=== PATIENT | female | born 1975 | race Caucasian/White ===

== ENCOUNTER 2022-01-20 21:24 | Emergency (ER) | payer OTHER, SELFPAY ==
[2022-01-20] VITALS (7 sets, daily range): BP systolic 112–150; BP diastolic 58–81; PULSE 87–105; RESP 18–24; TEMP 36.7; O2SAT 97–100; BMI 31.7
--- NOTE | 2022-01-20 21:37 | RAD_ITS ---
INDICATION: chest pain EXAMINATION/TECHNIQUE: X-RAY - XR Chest 1 View COMPARISON: 11/03/2015 FINDINGS: LINES/DEVICES: None. LUNGS: No consolidation, edema or effusion. No pneumothorax. MEDIASTINUM AND CARDIOVASCULAR STRUCTURES: Cardiac silhouette not enlarged. Central airways and mediastinal contour are unremarkable. BONES AND SOFT TISSUES: Unremarkable. RAD/Chest 1 View (Portable) IMPRESSION: No acute cardiopulmonary disease. Electronically Signed: Helder Keane MD at 22:33 EDT ,
--- NOTE | 2022-01-20 21:40 | EKG12_ITS ---
Test Reason : CP Blood Pressure : / mmHG Vent. Rate : 091 BPM Atrial Rate : 091 BPM P-R Int : 140 ms QRS Dur : 092 ms QT Int : 372 ms P-R-T Axes : 047 057 040 degrees QTc Int : 457 ms Normal sinus rhythm Normal ECG Confirmed by AMY MCKEON, YAHAIRA ([id number]), make up editor APRIL MADRID ([id number]) on 01/24/2022 9:22:46 AM Referred By: BB Confirmed By:YAHAIRA REYES MD
[2022-01-20 21:50] LABS: Absolute Lymphocyte Count 2.76 X10^3/uL (0.83-4.51); Absolute Neutrophil Count 8.9 X10^3/uL (2.0-7.7); Basophil# 0.09 X10^3/uL; Basophil% 0.7 % (0-1); Eosinophil# 0.34 X10^3/uL; Eosinophils% 2.5 % (0-5); Hematocrit 40.4 % (37-47); Hemoglobin 13.8 g/dL (12.0-15.0); Lymphocyte # 2.76 X10^3/ul (0.83-4.51); Lymphocyte % 20.7 % (19-41); Mean Corp Hgb Conc 34.2 g/dL (32-36); Mean Corpuscular Hgb 31.8 pg (27.0-32.0); Mean Corpuscular Volume 93.1 fL (81-99); Mean Platelet Vol. 9.9 fl (6.2-12.0); Monocyte# 1.16 X10^3/uL; Monocyte% 8.7 % (0-10); NRBC Flagged by Analyzer 0 % (0-5); Neutrophil # 8.93 X10^3/uL (2.7-7.7); Platelet Count 295 K/mm3 (150-450); RBC Distribution Width CV 12.9 % (11.6-14.6); RBC Distribution Width SD 44.1 fl (35.1-43.9); Red Blood Count 4.34 M/mm3 (4.2-5.4); White Blood Count 13.3 K/mm3 (4.4-11.0)
[2022-01-20 22:09] LABS: Anion Gap 5 (5-15); BUN 13 mg/dL (7-18); BUN/Creat Ratio 18.4 RATIO (10-20); Calcium,Total 8.9 mg/dL (8.5-10.1); Chloride 110 mmol/L (98-107); Creatinine, Serum 0.71 mg/dL (0.55-1.02); EST Glomerular Filtration Rate 95 mL/min (>60); Est Glom Filt Rate - Afr Amer 115 mL/min (>60); Estimated Creatinine Clearance 87.31 ml/min; Glucose 112 mg/dL (74-106); Potassium 3.4 mmol/L (3.5-5.1); Sodium Level 141 mmol/L (136-145); Troponin-I HS < 3 pg/mL (3.0-54.0)
[2022-01-20] MEDS: Ipratropium/Albuterol Sulfate 3 ML AMPUL.NEB INHALATION (22:32)
[2022-01-20] MEDS: diazePAM 5 MG Tablet PO (22:36)
[2022-01-20 23:08] LABS: Magnesium 2.1 mg/dL (1.6-2.6)
[2022-01-20 23:12] LABS: D-Dimer Quantitative (DVT/PE) 0.44 FEU/ug/m (0.27-0.49)
[2022-01-20 23:15] LABS: BNP,B-Type NATRIURETIC PEPTIDE 2.2 pg/mL (0-100)
--- NOTE | 2022-01-20 23:25 | EDS_ITS ---
HPI History of Present Illness Chief Complaint: Chest Pain Narrative Narrative: Patient is a 46-year-old female with past medical history of smoking but denies any need for supplemental oxygen. Patient states this afternoon she began feeling shortness of breath and was breathing faster and had mild chest discomfort a few hours later. She denies any previous history of cardiovascular disease any fevers chills cough or congestion. 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 She states that her symptoms have been persistent she was concerned this could be cardiac in nature especially as she is now developed chest pain and therefore comes in for evaluation. PFSH PFS Medical History Anxiety Depression Pulmonary embolism Smoker Home Medications albuterol sulfate 90 mcg/actuation aerosol inhaler (Ventolin HFA) 1 - 2 puff inhalation Q4H PRN PRN SOB/Wheezing #1 device 01/20/22 [Rx Last Taken Unknown] mirtazapine 15 mg tablet 15 tab PO DAILY 01/20/22 [History Last Taken Unknown] sertraline 100 mg tablet 100 tab PO DAILY 01/20/22 [History Last Taken Unknown] Allergy/AdvReac Type Severity Reaction Status Date / Time No Known Allergies Allergy Verified 01/20/22 21:27 Social History (System 04/25/18 @ 13:32 by Ofe Eng) Smoking Status: Current every day smoker tobacco type: cigarettes ROS ROS ED Constitutional Constitutional ED: Denies chills or fever(s) ENT ENT ED: Denies sore throat Cardiovascular Cardiovascular: Reports chest pain; Denies palpitations Respiratory/Chest Respiratory/Chest: Reports dyspnea; Denies cough Gastrointestinal Gastrointestinal: Denies abdominal pain, diarrhea, nausea or vomiting Genitourinary Genitourinary ED: Denies dysuria Musculoskeletal Musculoskeletal: Denies myalgias Integumentary Denies rash Neurologic Neurologic: Denies headache(s) Hematologic/Lymphatic Hematologic/Lymphatic: Denies easy bleeding or easy bruising EXAM Physical Exam Const Vital Signs: 01/20/22 21:24 01/20/22 21:57 01/20/22 21:57 Temperature 98.1 F Temperature Source Temporal Pulse Rate 105 H 91 Respiratory Rate 22 H 24 H Respiratory Effort Respiratory Depth Respiratory Pattern Blood Pressure 150/81 H 120/76 Blood Pressure Mean 104 90 Pulse Ox 97 100 100 Oxygen Delivery Method Room Air Room Air Room Air 01/20/22 21:59 01/20/22 22:31 01/20/22 23:22 Temperature Temperature Source Pulse Rate 87 87 Respiratory Rate 18 18 Respiratory Effort Labored Respiratory Depth Deep Respiratory Pattern Tachypnea Blood Pressure 116/58 L 128/73 H Blood Pressure Mean 77 91 Pulse Ox 100 98 Oxygen Delivery Method Room Air Room Air Room Air Positive well nourished and well developed General Appearance ED: well developed HEENT Reports moist mucous membranes HEENT Narrative: No tongue or lip swelling no oral lesions no airway edema or compromise Eyes PERRL and EOMs intact bilaterally Neck supple and no JVD Resp Resp Narrative: Patient has diminished breath sounds throughout with faint expiratory wheeze consistent with history of smoking as well as mild tachypnea and accessory muscle use Cardio regular rate and regular rhythm Rate: other Other Details: Radial pulses are plus 2 out of 4 bilaterally are equal and symmetric GI non-tender and non-distended Auscultation: normoactive bowel sounds Palpation: soft Extremity normal to inspection Extremity Narrative: No asymmetric edema no pitting edema negative Homans' sign bilaterally Neuro oriented x3 and CN's II-XII intact bilaterally Sensorium / Orientation: alert Psych Psych Narrative: Patient has a nervous/anxious affect Skin no rashes or lesions noted MDM MDM MDM Narrative Medical decision making narrative: Patient presented to the ER with mild tachypnea and accessory muscle use. She reported feeling short of breath and did have mild increased work of breathing but despite this was satting 97 to 100% on room air. She has minimal risk factors for CAD but with her history a cardiac work-up was obtained as well as D-dimer because of previous DVT/PE. Blood work revealed no clinically signifi cant findings and as her symptoms have been going on for over 6 hours and initial troponin was less than 3 there is no need for delta. Patient was given breathing treatments and did have improvement of her symptoms as well as reduction in her work of breathing. Therefore at this time with normal troponin and negative D-dimer as well as no acute cardio or pulmonary disease on chest x- ray and improvement of symptoms there is no need for further work-up or admission. Patient be discharged home with symptomatic care. Lab Data Attestation: I reviewed the patient's lab results. Labs: Laboratory Results - last 24 hr 01/20/22 01/20/22 01/20/22 21:40 21:40 21:40 WBC 13.3 H RBC 4.34 Hgb 13.8 Hct 40.4 MCV 93.1 MCH 31.8 MCHC 34.2 RDW Std Deviation 44.1 H RDW Coeff of Torres 12.9 Plt Count 295 MPV 9.9 Immature Gran % (Auto) 0.400 Neut % (Auto) 67.0 Lymph % (Auto) 20.7 [place] % (Auto) 8.7 Eos % (Auto) 2.5 Baso % (Auto) 0.7 Absolute Neuts (auto) 8.9 H Absolute Lymphs (auto) 2.76 Nucleated RBC % 0 D-Dimer Quant (PE/DVT) 0.44 Sodium 141 Potassium 3.4 L Chloride 110 H Carbon Dioxide 26.0 Anion Gap 5 BUN 13 Creatinine 0.71 Estim Creat Clear Calc 87.31 Est GFR (MDRD) Af Amer 115 Est GFR (MDRD) Non-Af 95 BUN/Creatinine Ratio 18.4 Glucose 112 H Calcium 8.9 Magnesium Troponin I High Sens < 3 L B-Natriuretic Peptide 01/20/22 01/20/22 21:40 21:40 WBC RBC Hgb Hct MCV MCH MCHC RDW Std Deviation RDW Coeff of Torres Plt Count MPV Immature Gran % (Auto) Neut % (Auto) Lymph % (Auto) [place] % (Auto) Eos % (Auto) Baso % (Auto) Absolute Neuts (auto) Absolute Lymphs (auto) Nucleated RBC % D-Dimer Quant (PE/DVT) Sodium Potassium Chloride Carbon Dioxide Anion Gap BUN Creatinine Estim Creat Clear Calc Est GFR (MDRD) Af Amer Est GFR (MDRD) Non-Af BUN/Creatinine Ratio Glucose Calcium Magnesium 2.1 Troponin I High Sens B-Natriuretic Peptide 2.2 Radiography Diagnostic Testing: Clinical Impression(s) from Imaging Studies Chest X-Ray 01/20/22 21:37 IMPRESSION: No acute cardiopulmonary disease. Electronically Signed: Helder Keane MD at 22:33 EDT , Chest x-ray as interpreted by the emergency medicine physician reveals no acute infiltrate pneumothorax or pleural effusion. Discharge Plan Triage Chief Complaint: Chest Pain Other Complaint: Shortness of Breath ED Provider: Neeraj Urbano Dx/Rx/DC Orders Instructions: ED Chest Pain, Uncertain Cause Prescriptions: New albuterol sulfate [Ventolin HFA] 90 mcg/actuation HFA aerosol inhaler 1 - 2 puff inhalation Q4H PRN PRN (Reason: SOB/Wheezing) Qty: 1 0RF No Action sertraline 100 mg tablet 100 tab PO DAILY mirtazapine 15 mg tablet 15 tab PO DAILY Label Comments: TAKE 1 TABLET BY MOUTH ONCE DAILY Primary Care Provider: Khurram Velazquez NP Referrals: Khurram Velazquez NP, ADMISSION DISCHARGE RN-C [Primary Care Provider] - Disposition Disposition: Home, Self Care Discharge Date/Time: 01/20/22 23:34
== END 2022-01-20 23:34 | disposition home or self-care (01) ==
PROVIDERS: Emergency Provider Emergency Medicine; PCP Nurse Practitioner Family; Visit Provider Emergency Medicine
DX: R07.9 Chest pain, unspecified (principal); R06.02 Shortness of breath; F17.210 Nicotine dependence, cigarettes, uncomplicated; Z86.711 Personal history of pulmonary embolism
CPT/HCPCS: 71045; 80048; 83735; 83880; 84484; 85025; 85379; 93005; 94640; 99251; 99284; G0463

== ENCOUNTER 2022-01-25 08:41 | Inpatient (IN) | payer OTHER, SELFPAY ==
[2022-01-25] VITALS (16 sets, daily range): BP systolic 103–130; BP diastolic 44–106; PULSE 92–117; RESP 18–26; TEMP 37–38.8; O2SAT 95–98; BMI 32.5; BMI 35.6
--- NOTE | 2022-01-25 08:56 | EKG12_ITS ---
Test Reason : SOB Blood Pressure : / mmHG Vent. Rate : 102 BPM Atrial Rate : 102 BPM P-R Int : 126 ms QRS Dur : 098 ms QT Int : 346 ms P-R-T Axes : 044 062 021 degrees QTc Int : 450 ms Sinus tachycardia Otherwise normal ECG Confirmed by DARLENE MCKEON, RIAZ ([id number]), editor managing newspaper APRIL MADRID ([id number]) on 01/30/2022 11:06:05 AM Referred By: Collin Confirmed By:GABINO COLON MD
--- NOTE | 2022-01-25 08:56 | RAD_ITS ---
STUDY: X-RAY CHEST REASON FOR EXAM: Female, 46 years old. Cough, fever, rales right lower lobe, - COVID PCR TECHNIQUE: Single AP portable view of the chest. COMPARISON: Comparison is made with prior study dated 01/20/2022. FINDINGS: EKG electrodes are seen. Right infrahilar consolidation. Radiographic follow-up recommended. There is no demonstrated pleural abnormality. Normal size heart. Normal mediastinum and debra. Normal visualized pulmonary arteries. Normal visualized aortic arch and descending thoracic aorta. Normal visualized thoracic spine. Normal visualized ribs, clavicles, and shoulders. There is no demonstrated abnormality of the visualized soft tissue structures of the upper abdomen. RAD/Chest 1 View (Portable) IMPRESSION: Right infrahilar consolidation. Electronically Signed: Esvin Duran MD at 11:08 EDT ,
--- NOTE | 2022-01-25 09:00 | ED.VIS.DYS ---
HPI History of Present Illness Chief Complaint: Shortness of Breath Informant: patient and spouse/S.O. Onset/Context/Timing Onset: Days Context: sudden and gradual Timing: Continuous Quality: Positive for Dyspnea on exertion and Wheezing; Negative for Orthopnea or PND Current Severity: Mild Maximum Severity: Severe Worsened by: Exertion Relieved by: Nothing Associated Symptoms cough, fever, chills and other; Negative for rhinorrhea, post nasal drip, ear pain, sore throat, subjective, sweats, clear sputum, white sputum, yellow sputum or green sputum Chest Pain: Positive for Intermittent, Sharp and Pleuritic Narrative Narrative: Patient is a 46-year-old woman who was seen at the [facility] yesterday. Had a negative COVID PCR. D-dimer was elevated at 1700. She has a remote history of PE that was unprovoked when she was 22 years of age. She did have recent trip to [place] 6 weeks ago. states she had swelling the day after the trip. The swelling resolved in 24 hours. She denies leg pain, swelling or discoloration presently. She does report document temperature 103.4. She reports epistaxis with vomiting. She is not on an anticoagulant. She has vomited several times the past hour or 2. She does endorse thirst, dry mouth and lightheadedness. She does report mild headache. She denies double vision, blurred vision loss of vision. Denies ringing in ears or decreased hearing. She denies rhinorrhea, congestion postnasal drainage. She denies sore throat. She denies abdominal pain. She denies diarrhea. She does endorse stress incontinence. She denies dysuria, frequency, urgency or hematuria. She denies paresthesia, anesthesia or motor weakness. PE Risk Factors: Positive for Prior DVT or PE; Negative for Cancer, OCP + Smoking + > 35, Recent immobilization, Recent surgery or Recent travel Prior similar symptoms: No Recent Illness/Hospitalization: No PFSH PFSH Medical History Alcohol abuse Anxiety Depression Pulmonary embolism Smoker Home Medications albuterol sulfate 90 mcg/actuation aerosol inhaler (Ventolin HFA) 1 - 2 puff inhalation Q4H PRN PRN SOB/Wheezing #1 device 01/20/22 [Rx Last Taken Unknown] mirtazapine 15 mg tablet 15 mg PO DINNER 01/20/22 [History Last Taken 01/24/22] sertraline 100 mg tablet 100 mg PO DINNER 01/20/22 [History Last Taken 01/24/22] Allergy/AdvReac Type Severity Reaction Status Date / Time No Known Allergies Allergy Verified 01/25/22 08:43 Surgical History History of hysterectomy Social History household members: spouse Smoking Status: Current every day smoker tobacco type: cigarettes alcohol intake: current substance use type: does not use ROS ROS ED Constitutional Constitutional ED: Reports chills, fever(s) and sweats; Denies weight loss Eyes Eyes: Denies blurry vision, change in vision or diplopia ENT ENT ED: Reports other Details: Epistaxis with vomiting ; Denies ear pain, rhinorrhea or sore throat Cardiovascular Cardiovascular: Reports chest pain; Denies orthopnea, palpitations, paroxysmal nocturnal dyspnea or racing heartbeat Respiratory/Chest Respiratory/Chest: Reports cough, dyspnea and dyspnea on exertion; Denies orthopnea, paroxysmal nocturnal dyspnea or sputum Gastrointestinal Gastrointestinal: Reports abdominal pain, nausea, vomiting and other Details: Abdominal pain is associated with vomiting ; Denies constipation, diarrhea or melena Genitourinary Genitourinary ED: Denies dysuria, hematuria or urinary frequency Musculoskeletal Musculoskeletal: Denies arthralgias, back pain, myalgias or neck pain Integumentary Denies abscess, Abrasions or rash Neurologic Neurologic: Reports headache(s); Denies paresthesias or weakness Endocrine Endocrinology: Denies cold intolerance, heat intolerance, polydipsia, polyphagia or polyuria Hematologic/Lymphatic Hematologic/Lymphatic: Denies easy bleeding or easy bruising EXAM Physical Exam Const Vital Signs: 01/25/22 08:41 01/25/22 08:58 01/25/22 09:01 Temperature 100.9 F H Temperature Source Temporal Pulse Rate 117 H Respiratory Rate 20 H Respiratory Effort Labored Pursed Lip Respiratory Depth Shallow Respiratory Pattern Tachypnea Blood Pressure 130/75 H Blood Pressure Mean 93 Pulse Ox 96 95 Oxygen Delivery Method Room Air Room Air Room Air 01/25/22 09:03 01/25/22 09:29 01/25/22 09:39 Temperature 100.9 F H 100.9 F H Temperature Source Oral Oral Pulse Rate 106 H 104 H Respiratory Rate 18 21 H Respiratory Effort Respiratory Depth Respiratory Pattern Blood Pressure 110/77 125/73 H Blood Pressure Mean 88 90 Pulse Ox 95 96 Oxygen Delivery Method Room Air Room Air 01/25/22 10:00 01/25/22 10:00 01/25/22 10:39 Temperature 99.3 F H 99.3 F H 98.6 F Temperature Source Oral Oral Oral Pulse Rate 108 H 100 Respiratory Rate 24 H 22 H Respiratory Effort Respiratory Depth Respiratory Pattern Blood Pressure 122/106 H 111/67 Blood Pressure Mean 111 81 Pulse Ox 96 95 Oxygen Delivery Method Room Air Room Air Positive well nourished, well developed and obese Constitutional Narrative: Patient does not appear well. She is breathing much more rapidly than 20 times a minute. She appears ill but not toxic. There is minimal use of accessory muscles. General Appearance ED: well developed; Negative for NAD or pallor Nutritional Appearance: obese HEENT Reports dry mucous membranes HEENT Narrative: Ears normal. TMs normal. Nares patent. Posterior pharynx out erythema or exudate. Uvula is midline. atraumatic; Negative for tenderness Mouth ED: Yes dry mucous membranes Mouth: dry mucous membranes Eyes PERRL and EOMs intact bilaterally General Eye ED: Negative for pale conjunctiva or scleral icterus Neck no lymphadenopathy, supple, no meningeal signs and no JVD Neck Narrative: Trachea is midline. There is no in-store expiratory stridor. Resp No normal respiratory effort and No clear to auscultation bilaterally Resp Narrative: There are rales noted right lower lobe posteriorly with egophony and increased vocal fremitus. There is slight wheezing noted with forced expiration, only. Cardio regular rhythm, S1 normal heart sound, S2 normal heart sound and no murmurs Rate: tachycardic GI non-tender, non-distended and no masses Auscultation: hypoactive bowel sounds Palpation: soft Back/Spine no CVA tenderness and normal to inspection Extremity normal to inspection Extremity Narrative: There is no asymmetry, swelling, discoloration, leg vein distention, palpable cords or tenderness along the distribution of the deep venous system. Neuro oriented x3, CN's II-XII intact bilaterally and no sensory deficits noted [place] Coma Scale: document GCS findings Spontaneous Obeys Commands Oriented 15 Sensorium / Orientation: alert Speech: speech normal Motor Exam: strength 5/5 throughout Psych mental status grossly normal Skin no wounds and skin turgor normal General Skin Exam: Negative for jaundice or pallor Lesions: no lesions Rashes: no rashes MDM MDM MDM Narrative Medical decision making narrative: Clinically patient has a right lower lobe pneumonia. If there is no evidence of pneumonia on x-ray will obtain CTA since patient's D-dimer was 1711 yesterday. This was performed at the [facility]. The right lower lobe pneumonia would explain her nausea and vomiting. BMP was obtained to assess renal function, CO2 and anion gap. CBC to evaluate white count as well as rule out anemia. Sepsis work-up was initiated. She was treated with ceftriaxone and azithromycin since she has no allergies. Patient received IV Zofran for her nausea and significant milligrams of Tylenol for elevated temperature. Patient was reassessed at 1000. Patient is breathing 33 times a minute. She has conversational dyspnea. Heart rate is 103. With patient having conversational dyspnea breathing 33 times a minute she will need admission to the hospital. Lab Data Attestation: I reviewed the patient's lab results. Lab results narrative: White count is elevated with shift. There is no bandemia. I was informed at 0939 that the potassium is 2.7. 40 mEq of potassium solution was ordered. Electrolytes otherwise are unremarkable. CO2 and anion gap are normal. Glucose is slightly elevated 124. Lactate is normal, 1.4. Labs: Laboratory Results - last 24 hr 01/25/22 01/25/22 01/25/22 09:09 09:09 09:09 WBC 16.4 H RBC 4.12 L Hgb 13.1 Hct 36.3 L MCV 88.1 D MCH 31.8 MCHC 36.1 H D RDW Std Deviation 40.8 RDW Coeff of Torres 12.6 Plt Count 276 MPV 10.1 Immature Gran % (Auto) 3.200 H Neut % (Auto) 84.5 H Lymph % (Auto) 6.1 L [place] % (Auto) 5.4 Eos % (Auto) 0.3 Baso % (Auto) 0.5 Absolute Neuts (auto) 13.8 H Absolute Lymphs (auto) 0.99 Nucleated RBC % 0 PT 15.1 H INR 1.2 APTT 35.3 Sodium 133 L Potassium 2.7 L* Chloride 101 Carbon Dioxide 22.0 Anion Gap 10 BUN 12 Creatinine 0.84 Estim Creat Clear Calc 73.80 Est GFR (MDRD) Af Amer 95 Est GFR (MDRD) Non-Af 79 BUN/Creatinine Ratio 14.4 Glucose 124 H Lactic Acid Calcium 8.6 Magnesium Total Bilirubin 0.60 AST 28 ALT 31 Alkaline Phosphatase 71 Total Protein 7.7 Albumin 2.8 L Globulin 4.9 H Albumin/Globulin Ratio 0.6 L 01/25/22 01/25/22 09:09 09:09 WBC RBC Hgb Hct MCV MCH MCHC RDW Std Deviation RDW Coeff of Torres Plt Count MPV Immature Gran % (Auto) Neut % (Auto) Lymph % (Auto) [place] % (Auto) Eos % (Auto) Baso % (Auto) Absolute Neuts (auto) Absolute Lymphs (auto) Nucleated RBC % PT INR APTT Sodium Potassium Chloride Carbon Dioxide Anion Gap BUN Creatinine Estim Creat Clear Calc Est GFR (MDRD) Af Amer Est GFR (MDRD) Non-Af BUN/Creatinine Ratio Glucose Lactic Acid 1.4 Calcium Magnesium 2.2 Total Bilirubin AST ALT Alkaline Phosphatase Total Protein Albumin Globulin Albumin/Globulin Ratio Radiography Chest X-Ray - ED: 1 View and Read by ED Physician (Single view portable chest x-ray independently reviewed and interpreted by me at 1033 as positive for a right middle lobe pneumonia. Cardiac silhouet is obscured on the right side. The right and left hemidiaphragm are visualized. There is no evidence of pneumothorax or effusion. Perihilar region) Diagnostic Testing: Clinical Impression(s) from Imaging Studies Chest X-Ray 01/25/22 08:56 IMPRESSION: Right infrahilar consolidation. Electronically Signed: Esvin Duran MD at 11:08 EDT , EKG Initial EKG: Attestation: I personally reviewed and interpreted this EKG as follows: Interpretation: Sinus Tachycardia (Sinus tach otherwise EKG normal. Ventricular rate is 102. OK interval is 126 ms. QRS duration 98 ms. QT duration 346 ms. [place] is normal.) Discharge Plan Dx/Rx/DC Orders Clinical Impression: Right middle lobe pneumonia, Systemic inflammatory response syndrome (SIRS) due to infectious process without acute organ dysfunction, Acute hypokalemia Disposition Disposition: Acute Care [facility] Discharge Date/Time: 01/25/22 11:54
[2022-01-25] MEDS: 0.9% Normal Saline 1,000 ML 999 ML IV (09:13)
[2022-01-25 09:21] LABS: Absolute Lymphocyte Count 0.99 X10^3/uL (0.83-4.51); Absolute Neutrophil Count 13.8 X10^3/uL (2.0-7.7); Basophil# 0.08 X10^3/uL; Basophil% 0.5 % (0-1); Eosinophil# 0.05 X10^3/uL; Eosinophils% 0.3 % (0-5); Hematocrit 36.3 % (37-47); Hemoglobin 13.1 g/dL (12.0-15.0); Lymphocyte # 0.99 X10^3/ul (0.83-4.51); Lymphocyte % 6.1 % (19-41); Mean Corp Hgb Conc 36.1 g/dL (32-36); Mean Corpuscular Hgb 31.8 pg (27.0-32.0); Mean Corpuscular Volume 88.1 fL (81-99); Mean Platelet Vol. 10.1 fl (6.2-12.0); Monocyte# 0.88 X10^3/uL; Monocyte% 5.4 % (0-10); NRBC Flagged by Analyzer 0 % (0-5); Neutrophil # 13.83 X10^3/uL (2.7-7.7); Neutrophil % 84.5 % (47-70); Platelet Count 276 K/mm3 (150-450); RBC Distribution Width CV 12.6 % (11.6-14.6); RBC Distribution Width SD 40.8 fl (35.1-43.9); Red Blood Count 4.12 M/mm3 (4.2-5.4); White Blood Count 16.4 K/mm3 (4.4-11.0)
[2022-01-25] MEDS: Acetaminophen 325 MG Tablet 650 MG PO ×2 (09:39→22:16)
[2022-01-25] MEDS: Ondansetron 4 MG/2 ML Vial IV (09:39)
[2022-01-25 09:40] LABS: ALB/GLOB Ratio 0.6 RATIO (0.9-2.4); AST(SGOT) 28 U/L (15-37); Alanine Aminotransfer ALT/SGPT 31 U/L (13-56); Albumin, Serum 2.8 g/dL (3.2-5.0); Alkaline Phosphatase 71 U/L (45-117); Anion Gap 10 (5-15); BUN 12 mg/dL (7-18); BUN/Creat Ratio 14.4 RATIO (10-20); Calcium,Total 8.6 mg/dL (8.5-10.1); Chloride 101 mmol/L (98-107); Creatinine, Serum 0.84 mg/dL (0.55-1.02); EST Glomerular Filtration Rate 79 mL/min (>60); Est Glom Filt Rate - Afr Amer 95 mL/min (>60); Globulin 4.9 g/dL (2.2-4.2); Glucose 124 mg/dL (74-106); Potassium 2.7 mmol/L (3.5-5.1); Protein, Total 7.7 g/dL (6.4-8.2); Sodium Level 133 mmol/L (136-145)
[2022-01-25 09:42] LABS: Lactic Acid 1.4 mmol/L (0.4-1.9)
[2022-01-25 10:05] LABS: International Normalized Ratio 1.2; Prothrombin Time (Protime)PT. 15.1 SECONDS (11.7-14.9)
[2022-01-25 10:06] LABS: Partial Thromboplast Time 35.3 Seconds (24.1-36.2)
--- NOTE | 2022-01-25 10:29 | ED.RN ---
Med request from pharmacy
[2022-01-25 10:37] LABS: Magnesium 2.2 mg/dL (1.6-2.6)
--- NOTE | 2022-01-25 10:39 | NURSING ---
DR HITCHCOCK FOR DR ALATORRE
--- NOTE | 2022-01-25 10:44 | NURSING ---
MED SURG OBS TERELETSKY RT MIDDLE LOBE PNEUMONIA, SIRS, CONVERSATIONAL DYSPNEA
[2022-01-25] MEDS: Potassium Chloride Oral Soln 20 MEQ/15 ML UDC 40 MEQ PO (11:13)
--- NOTE | 2022-01-25 12:31 | CT_ITS ---
STUDY: CTA CHEST REASON FOR EXAM: Female, 46 years old. SOB RADIATION DOSAGE (If Supplied By Facility): CTDIvol = ( 12.45 ) mGy, DLP = ( 470.91 ) mGycm TECHNIQUE: The examination was performed with the intravenous administration of IV 100mL Isovue-370. Post-processing of the angiographic images was performed, with multiplanar reformation and 3D reconstruction. Individualized dose optimization techniques were used for this CT. COMPARISON: Comparison is made with prior chest radiograph done earlier today. FINDINGS: Normal enhancement of the main pulmonary artery and right and left pulmonary arteries. Normal enhancement of the bilateral peripheral pulmonary arteries. There is no demonstrated pulmonary embolism. Normal thoracic aorta and visualized great vessels. There is no demonstrated aortic dissection. Normal heart and pericardium. Normal mediastinum. Normal hilar regions. Normal visualized trachea and bronchi. There is dense consolidation in the right lower lobe. This extends into the right interlobar bronchus. Radiographic follow-up is recommended. Calcified granuloma in the lingular segment of the left upper lobe. Normal pleura. Normal chest wall structures. Normal osseous structures. Normal visualized upper abdomen. CT/CTA Chest W/WO Contrast IMPRESSION: Dense consolidation in the right lower lobe. Radiographic follow-up is recommended. Calcified granuloma in the lingular segment of the left upper lobe. Electronically Signed: Esvin Duran MD at 13:40 EDT ,
--- NOTE | 2022-01-25 13:00 | NURSING ---
had COVID 5 weeks ago
--- NOTE | 2022-01-25 13:34 | PCM.HP.STD ---
Documented by User: CINTHIA Laws 01/25/22 13:46 HPI - General General Date of Admission: 01/25/22 Date of Service: 01/25/22 Chief Complaint: Shortness of breath HPI Narrative LAINE LY, is a 46 F who presents with complaints of malaise and shortness of breath. Patient states that she has had a fever at home as high as 103. Patient was seen at the [facility] yesterday and her COVID PCR was negative. Patient's chest x-ray demonstrates right infrahilar consolidation. Apparently when patient was at the clinic yesterday she had a D-dimer which was extremely elevated. Patient has a history of unprovoked PE in the past but has never had any work-up to find the cause. Chest CTA pending. Patient also noted to be severely hypokalemic. PFSH Medical History Alcohol abuse Anxiety Depression Pulmonary embolism Smoker Home Medications albuterol sulfate 90 mcg/actuation aerosol inhaler (Ventolin HFA) 1 - 2 puff inhalation Q4H PRN PRN SOB/Wheezing #1 device 01/20/22 [Rx Last Taken Unknown] mirtazapine 15 mg tablet 15 mg PO DINNER 01/20/22 [History Last Taken 01/24/22] sertraline 100 mg tablet 100 mg PO DINNER 01/20/22 [History Last Taken 01/24/22] Allergy/AdvReac Type Severity Reaction Status Date / Time No Known Allergies Allergy Verified 01/25/22 08:43 Surgical History History of hysterectomy Social History household members: spouse Smoking Status: Current every day smoker tobacco type: cigarettes alcohol intake: current substance use type: does not use ROS Constitutional Constitutional: Reports chills, fever(s) and malaise; Denies anorexia or change in weight Cardiovascular Cardiovascular: Denies chest pain, edema or palpitations Respiratory/Chest Respiratory/Chest: Reports cough, shortness of breath at rest, shortness of breath with exertion, tachypnea and wheezing Gastrointestinal Gastrointestinal: Denies abdominal pain, constipation, diarrhea, nausea or vomiting Genitourinary Genitourinary: Denies dysuria Musculoskeletal Musculoskeletal: Denies back pain, extremity pain, joint pain, joint stiffness or joint swelling Integumentary Integumentary: Denies dry skin Neurologic Neurologic: Denies abnormal gait, abnormal speech, confusion or dizziness Psychiatric Psychiatric: Reports anxiety; Denies depression Endocrine Endocrinology: Denies change in body appearance Hematologic/Lymphatic Hematologic/Lymphatic: Denies anemia Vital Signs Vital Signs Vital Signs: 01/25/22 08:41 01/25/22 08:58 01/25/22 09:01 Temperature 100.9 F H Temperature Source Temporal Pulse Rate 117 H Respiratory Rate 20 H Respiratory Effort Labored Pursed Lip Respiratory Depth Shallow Respiratory Pattern Tachypnea Blood Pressure 130/75 H Blood Pressure Mean 93 Blood Pressure Source Blood Pressure Position Blood Pressure Location Pulse Ox 96 95 Oxygen Delivery Method Room Air Room Air Room Air 01/25/22 09:03 01/25/22 09:29 01/25/22 09:39 Temperature 100.9 F H 100.9 F H Temperature Source Oral Oral Pulse Rate 106 H 104 H Respiratory Rate 18 21 H Respiratory Effort Respiratory Depth Respiratory Pattern Blood Pressure 110/77 125/73 H Blood Pressure Mean 88 90 Blood Pressure Source Blood Pressure Position Blood Pressure Location Pulse Ox 95 96 Oxygen Delivery Method Room Air Room Air 01/25/22 10:00 01/25/22 10:00 01/25/22 10:39 Temperature 99.3 F H 99.3 F H 98.6 F Temperature Source Oral Oral Oral Pulse Rate 108 H 100 Respiratory Rate 24 H 22 H Respiratory Effort Respiratory Depth Respiratory Pattern Blood Pressure 122/106 H 111/67 Blood Pressure Mean 111 81 Blood Pressure Source Blood Pressure Position Blood Pressure Location Pulse Ox 96 95 Oxygen Delivery Method Room Air Room Air 01/25/22 11:15 01/25/22 11:00 01/25/22 11:00 Temperature 98.6 F 99.1 F 99.1 F Temperature Source Oral Oral Oral Pulse Rate 100 96 Respiratory Rate 22 H 24 H Respiratory Effort Respiratory Depth Respiratory Pattern Blood Pressure 111/67 107/68 Blood Pressure Mean 81 Blood Pressure Source Blood Pressure Position Blood Pressure Location Pulse Ox 95 95 Oxygen Delivery Method Room Air Room Air 01/25/22 12:32 01/25/22 12:24 Temperature 99.5 F H Temperature Source Oral Pulse Rate 92 Respiratory Rate 22 H Respiratory Effort Respiratory Depth Respiratory Pattern Blood Pressure 104/44 L Blood Pressure Mean 64 Blood Pressure Source Monitor Blood Pressure Position Semi-Fowlers Blood Pressure Location Right Arm Pulse Ox 95 Oxygen Delivery Method Room Air Room Air Weight Weight: 208 lb Body Mass Index (BMI) 35.6 Physical Exam Const alert and oriented x3 General Appearance: ill appearing Positive for acutely HEENT normocephalic, head/scalp atraumatic and moist oral mucous membranes Eyes conjunctivae normal and no scleral icterus Neck supple General: trachea midline Resp Effort and Inspection: tachypneic and labored Auscultation: wheezes expiratory wheezes, anterior, posterior and throughout Cardio regular rate, regular rhythm, S1 normal heart sound, S2 normal heart sound and peripheral pulses 2+ throughout GI normal to inspection, nondistended, normoactive bowel sounds, soft to palpation and non-tender Extremity normal capillary refill and no clubbing, cyanosis or edema Skin General Skin Exam: no breakdown Lesions: no lesions Rashes: no rashes Neuro no focal motor deficits and no sensory deficits noted Speech: speech normal Psych thought process normal, cooperative and affect normal Results Lab / Micro Data Result Diagrams: 01/25/22 09:09 01/25/22 09:09 Labs: Laboratory Results - last 24 hr 01/25/22 09:09: WBC 16.4 H, RBC 4.12 L, Hgb 13.1, Hct 36.3 L, MCV 88.1 D, MCH 31.8, MCHC 36.1 H D, RDW Std Deviation 40.8, RDW Coeff of Torres 12.6, Plt Count 276, MPV 10.1, Immature Gran % (Auto) 3.200 H, Neut % (Auto) 84.5 H, Lymph % (Auto) 6.1 L, Benson % (Auto) 5.4, Eos % (Auto) 0.3, Baso % (Auto) 0.5, Absolute Neuts (auto) 13.8 H, Absolute Lymphs (auto) 0.99, Nucleated RBC % 0 01/25/22 09:09: PT 15.1 H, INR 1.2, APTT 35.3 01/25/22 09:09: Sodium 133 L, Potassium 2.7 L*, Chloride 101, Carbon Dioxide 22.0, Anion Gap 10, BUN 12, Creatinine 0.84, Estim Creat Clear Calc 73.80, Est GFR (MDRD) Af Amer 95, Est GFR (MDRD) Non-Af 79, BUN/Creatinine Ratio 14.4, Glucose 124 H, Calcium 8.6, Total Bilirubin 0.60, AST 28, ALT 31, Alkaline Phosphatase 71, Total Protein 7.7, Albumin 2.8 L, Globulin 4.9 H, Albumin/Globulin Ratio 0.6 L 01/25/22 09:09: Lactic Acid 1.4 01/25/22 09:09: Magnesium 2.2 Radiology Impression Chest X-Ray 01/25/22 08:56 IMPRESSION: Right infrahilar consolidation. Electronically Signed: Esvin Duran MD at 11:08 EDT , Assessment & Plan Assessment/Plan (1) Right middle lobe pneumonia: (2) Acute hypokalemia: (3) Systemic inflammatory response syndrome (SIRS) due to infectious process without acute organ dysfunction: PLAN: Plan 1. Sepsis secondary to right middle lobe pneumonia -Patient meets criteria for sepsis as she is febrile, tachycardic, tachypneic, elevated white blood cell count and has a known source of infection from her pneumonia. -Admit to [facility] -Azithromycin and ceftriaxone initiated in ER, will continue -As needed Tylenol and ibuprofen given for fever -CBC and BMP in a.m. -Legionella and strep urine antigen ordered -Respiratory panel and blood cultures pending -Scheduled DuoNeb and as needed albuterol treatments ordered -Oxygen per protocol, currently on room air -Encourage incentive spirometry -Due to elevated D-dimer at [facility] and history of unprovoked PE CTA pending 2. Hypokalemia -Patient given potassium replacement in the ER -BMP ordered daily 3. Anxiety -Continue mirtazapine and sertraline DVT prophylaxis-subcu Lovenox This patient was seen by JOSE R LawsC under the supervision of Dr. Romano. 31 minutes spent in clinical coordination of patient's plan of care. Documented by User: Dr. Reynaldo Romano, DO 01/25/22 16:50 HPI - General General Date of Admission: 01/25/22 [facility] Medical History Alcohol abuse Anxiety Depression Pulmonary embolism Smoker Home Medications albuterol sulfate 90 mcg/actuation aerosol inhaler (Ventolin HFA) 1 - 2 puff inhalation Q4H PRN PRN SOB/Wheezing #1 device 01/20/22 [Rx Last Taken Unknown] mirtazapine 15 mg tablet 15 mg PO DINNER 01/20/22 [History Last Taken 01/24/22] sertraline 100 mg tablet 100 mg PO DINNER 01/20/22 [History Last Taken 01/24/22] Allergy/AdvReac Type Severity Reaction Status Date / Time No Known Allergies Allergy Verified 01/25/22 08:43 Surgical History History of hysterectomy Social History household members: spouse Smoking Status: Current every day smoker tobacco type: cigarettes alcohol intake: current substance use type: does not use Results Lab / Micro Data Result Diagrams: 01/25/22 09:09 01/25/22 09:09 Assessment & Plan Assessment/Plan (1) Right middle lobe pneumonia: (2) Acute hypokalemia: (3) Systemic inflammatory response syndrome (SIRS) due to infectious process without acute organ dysfunction: Charges/Coding Addendum Addendum: Patient was seen and examined today independently of Cristiane Moore, she came to the ER today with complaints of shortness of breath, cough, and yellow sputum production. She reported a temperature at home up to 103.4, she was seen at the [facility] yesterday, she had a negative COVID PCR test but her D-dimer was elevated at 1700. Work-up in the emergency room revealed a right hilar pneumonia, patient's white blood cell count was elevated, her potassium was low, and the patient's pulse ox on room air was above 90%. On examination she appeared in good health and spirits, she appears to be in mild respiratory distress at rest although her pulse ox is 95% on room air. Vital signs as documented. Skin warm and dry and without overt rashes. Neck without JVD, thyroid appears normal, trachea is midline, neck is supple. Lungs-decreased breath sounds are noted over the patient's right middle lung field, no rales rhonchi or wheezes were noted. Heart exam notable for regular rhythm, normal sounds and absence of murmurs, rubs or gallops. Abdomen unremarkable and without evidence of organomegaly, masses, or abdominal aortic enlargement, bowel sounds are present in all 4 quadrants, no abdominal tenderness was noted. Extremities nonedematous, no cyanosis was noted, no clubbing was noted. Neuro: Cranial nerves II through XII are grossly intact, no focal motor deficits were noted, sensation to light touch and pinprick is intact, motor exam 5/5 throughout. Psych: Patient is alert and oriented x3, she does not appear anxious or depressed, she does not appear agitated. Impression: #1 community-acquired pneumonia-patient was given IV Rocephin and Zithromax, she will be placed in observation status on [facility] 3, she will have aerosol treatments given and a repeat chest x-ray will be performed tomorrow, labs will be monitored. A CTA of the chest was performed due to elevated D-dimer as an outpatient, this CTA did not show evidence of emboli. #2 hypokalemia-patient was given IV potassium supplementation, labs will be repeated tomorrow #3 chronic depression-patient will remain on her home medication I have reviewed Cristiane Moore's history and physical including her medical assessment and plan of care with the above additions endorse it. Total clinical time spent by myself addressing the patient's medical issues, reviewing the data, and collaborating with patient's care team: 35 minutes Visit Charges OBSV E&M: 67697 Initial observation care L2
[2022-01-25] MEDS: Ibuprofen 400 MG Tablet PO ×2 (14:47→20:29)
[2022-01-25] MEDS: Ipratropium/Albuterol Sulfate 3 ML AMPUL.NEB INHALATION ×2 (15:16→19:12)
[2022-01-26] VITALS (13 sets, daily range): BP systolic 95–121; BP diastolic 48–75; PULSE 83–117; RESP 16–24; TEMP 36.7–37.8; O2SAT 92–97
[2022-01-26] MEDS: Ipratropium/Albuterol Sulfate 3 ML AMPUL.NEB INHALATION ×4 (01:23→19:35)
[2022-01-26 06:37] LABS: Hematocrit 36.8 % (37-47); Hemoglobin 12.6 g/dL (12.0-15.0); Mean Corp Hgb Conc 34.2 g/dL (32-36); Mean Corpuscular Hgb 30.9 pg (27.0-32.0); Mean Corpuscular Volume 90.2 fL (81-99); Mean Platelet Vol. 10.6 fl (6.2-12.0); POSITIVE COUNT YES; POSITIVE MORPHOLOGY YES; Platelet Count 296 K/mm3 (150-450); RBC Distribution Width SD 42.5 fl (35.1-43.9); Red Blood Count 4.08 M/mm3 (4.2-5.4)
[2022-01-26 06:40] LABS: Differential Indicated MANUAL DIFF
[2022-01-26 06:53] LABS: Platelet Estimate ADEQUATE (ADEQ); Red Cell Morphology NORM C+C NORMAL (NORM C&C)
[2022-01-26 06:57] LABS: Absolute Neutrophil Count 10.5 X10^3/uL (2.0-7.7); Lymphocyte 10 % (19-41); Metamyelocyte 1 % (0-1); Monocyte 7 % (0-10); Myelocyte 1 % (0-0); Neutrophil-Band 32 % (0-5); Neutrophil-Segmented 49 % (47-70); Total Cells Counted 100 (MANUAL DIFF)
[2022-01-26 07:25] LABS: Anion Gap 7 (5-15); BUN 11 mg/dL (7-18); BUN/Creat Ratio 17.4 RATIO (10-20); Calcium,Total 8.3 mg/dL (8.5-10.1); Chloride 103 mmol/L (98-107); Creatinine, Serum 0.63 mg/dL (0.55-1.02); EST Glomerular Filtration Rate 108 mL/min (>60); Est Glom Filt Rate - Afr Amer 131 mL/min (>60); Glucose 93 mg/dL (74-106); Potassium 3.1 mmol/L (3.5-5.1); Sodium Level 134 mmol/L (136-145)
--- NOTE | 2022-01-26 08:15 | RAD_ITS ---
STUDY: X-RAY CHEST REASON FOR EXAM: Female, 46 years old. Pneumonia TECHNIQUE: PA and lateral views of the chest. COMPARISON: Comparison is made with prior study dated 01/25/2022. FINDINGS: Progressive right lower lobe infiltrate. There is no demonstrated pleural abnormality. Normal size heart. Normal mediastinum and debra. Normal visualized pulmonary arteries. Normal visualized aortic arch and descending thoracic aorta. Normal visualized thoracic spine. Normal visualized ribs, clavicles, and shoulders. There is no demonstrated abnormality of the visualized soft tissue structures of the upper abdomen. RAD/Chest PA and Lateral IMPRESSION: Progressive right lower lobe infiltrate. Electronically Signed: Esvin Duran MD at 8:32 EDT ,
[2022-01-26] MEDS: 0.9% Saline Lock 10 ML Syringe IV ×2 (09:13→20:14)
[2022-01-26] MEDS: Sertraline 100 MG Tablet PO (09:17)
[2022-01-26] MEDS: Ibuprofen 400 MG Tablet PO ×2 (09:20→20:14)
[2022-01-26] MEDS: Enoxaparin 40 MG/0.4 ML Syringe SC (09:21)
--- NOTE | 2022-01-26 09:23 | VDLE_ITS ---
Reason For Study: elevated D-Dimer RIGHT LEFT GSV is normal. GSV is normal. CFV is compressible, spontaneous, phasic, CFV is compressible, spontaneous, phasic, competent and demonstrates normal competent, and demonstrates normal augmentation. augmentation. FV is compressible, spontaneous, phasic, FV is compressible, spontaneous, phasic, competent and demonstrates normal competent and demonstrates normal augmentation. augmentation. POP V is compressible, spontaneous, phasic, POP V is compressible, spontaneous, phasic, competent and demonstrates normal competent and demonstrates normal augmentation. augmentation. T/P Trunk is compressible. T/P Trunk is compressible. PTV is compressible. PTV is compressible. RT PerV is compressible. LT PerV is compressible. Procedure This is a venous duplex using B-mode, color flow and spectral Doppler. Exam performed portable in patient room. The exam was diagnostic. A preliminary report was called and/or faxed to the pt's RN. VL/Venous Duplex US - Yobani Extrem Interpretation Summary No evidence for acute deep venous thrombosis bilateral lower extremities with p atent and compressible bilateral great saphenous veins. Ordering Physician: Roxanna Avery Performed By: Matthias Crocker RVT
[2022-01-26] MEDS: Potassium Chloride Oral Tablet 20 MEQ 40 MEQ PO (09:50)
[2022-01-26] MEDS: Acetaminophen 325 MG Tablet 650 MG PO (10:49)
--- NOTE | 2022-01-26 11:28 | PCM.PN.HOSP ---
Documented by User: Roxanna Avery NP, SPLICING MACHINE OPERATOR [employer] 01/26/22 11:35 Subjective Subjective Patient seen and examined. Continues to report dyspnea with minimal activity. Intermittent fever. Oxygen remains stable on room air. Objective Data Objective Data Vital Signs: Vital Signs Temp Pulse Resp BP Pulse Ox O2 Del Method 100.1 F H 104 H 20 H 98/48 L 94 Room Air 01/26/22 11:07 01/26/22 11:07 01/26/22 11:07 01/26/22 11:07 01/26/22 11:07 01/26/22 11:07 Oxygen Delivery Method Room Air Weight: 208 lb Body Mass Index (BMI) 35.6 Intake & Output: Intake and Output for Last 24 Hours 01/24/22 01/25/22 01/26/22 23:59 23:59 23:59 Intake Total 2153.25 / 2553.25 1400 / 1400 Balance 2153.25 / 2553.25 1400 / 1400 Lab / Micro Data Result Diagrams: 01/26/22 05:45 01/26/22 05:45 Labs: Laboratory Results - last 24 hr 01/26/22 05:45: WBC 13.0 H, RBC 4.08 L, Hgb 12.6, Hct 36.8 L, MCV 90.2, MCH 30.9, MCHC 34.2 D, RDW Std Deviation 42.5, RDW Coeff of Torres 13.0, Plt Count 296, MPV 10.6, Neut % (Auto) Not Reportable, Absolute Neuts (auto) 10.5 H, Absolute Lymphs (auto) 1.30, Total Counted 100, Neutrophils % (Manual) 49, Band Neutrophils % 32 H, Lymphocytes % (Manual) 10 L, Monocytes % (Manual) 7, Metamyelocytes % 1, Myelocytes % 1 H, Diff Path Review October, Platelet Estimate ADEQUATE, RBC Morphology NORM C+C 01/26/22 05:45: Sodium 134 L, Potassium 3.1 L, Chloride 103, Carbon Dioxide 24.0, Anion Gap 7, BUN 11, Creatinine 0.63, Estim Creat Clear Calc 98.40, Est GFR (MDRD) Af Amer 131, Est GFR (MDRD) Non-Af 108, BUN/Creatinine Ratio 17.4, Glucose 93, Calcium 8.3 L Micro: Microbiology 01/25/22 17:52 Mucosa - Nose Respiratory Panel (PCR) - Final Radiography Diagnostic Testing: Radiology Impression Chest CTA 01/25/22 12:31 IMPRESSION: Dense consolidation in the right lower lobe. Radiographic follow-up is recommended. Calcified granuloma in the lingular segment of the left upper lobe. Electronically Signed: Esvin Duran MD at 13:40 EDT , Chest X-Ray 01/26/22 08:15 IMPRESSION: Progressive right lower lobe infiltrate. Electronically Signed: Esvin Duran MD at 8:32 EDT , Physical Exam Const alert and oriented x3 Constitutional Narrative: Appears dyspneic HEENT normocephalic and moist oral mucous membranes Eyes PERRL, EOMs intact bilaterally and conjunctivae normal Neck no lymphadenopathy Resp Auscultation: crackles and diminished lung sounds Cardio regular rate, regular rhythm and no murmurs Peripheral Pulses: pulses 2+ throughout GI normal to inspection, nondistended, normoactive bowel sounds, non-tender and non-distended Extremity normal to inspection Skin no rashes or lesions noted Lesions: no lesions Rashes: no rashes Trauma: no lacerations or abrasions Neuro CN's II-XII intact bilaterally, no focal motor deficits, no sensory deficits noted and deep tendon reflexes 2+ bilaterally Psych mental status grossly normal and affect normal Assessment & Plan Assessment/Plan (1) Right middle lobe pneumonia: PLAN: Plan 1. Community-acquired right lower lobe infiltrate-sepsis ruled out. IV azithromycin and IV Rocephin. Albuterol and DuoNeb aerosols. Blood culture pending. Leukocytosis improving. Oxygen remained stable on room air. Continues to have low-grade fever. COVID-negative. 2. Hypokalemia-replace per protocol, trend BMP. 3. Depression/anxiety-on mirtazapine, sertraline. DVT prophylaxis-Lovenox subcu This patient was seen by Roxanna Bennie, SPLICING MACHINE OPERATOR [employer]C under the supervision of Dr. Romano. Time spent examining patient, reviewing data and subsequent management of care: 14 minutes Documented by User: Dr. Reynaldo Romano, DO 01/26/22 17:46 Objective Data Lab / Micro Data Result Diagrams: 01/26/22 05:45 01/26/22 05:45 Assessment & Plan Assessment/Plan (1) Right middle lobe pneumonia: Charges/Coding Addendum Addendum: Patient was seen and examined independently of Roxanna Avery today, her performance status appears poor, she does not require oxygen at rest or when ambulating but she appears visibly short of breath with minimal exertion. Chest x-ray showed increased infiltrate in the right lung today. Patient's Legionella and strep urine antigens were negative. Patient's white count is improved today although she is still running a temperature. On examination she appeared fatigued, she appears older than her stated age, she does not appear to be in any distress at rest. Vital signs as documented. Skin warm and dry and without overt rashes. Neck without JVD, thyroid appears normal, trachea is midline, neck is supple. Lungs-inspiratory rales are noted over the patient's right midlung field, normal air movement was noted. Heart exam notable for regular rhythm, normal sounds and absence of murmurs, rubs or gallops. Abdomen unremarkable and without evidence of organomegaly, masses, or abdominal aortic enlargement, bowel sounds are present in all 4 quadrants, no abdominal tenderness was noted. Extremities nonedematous, no cyanosis was noted, no clubbing was noted. Neuro: Cranial nerves II through XII are grossly intact, no focal motor deficits were noted, sensation to light touch and pinprick is intact, motor exam 5/5 throughout. Psych: Patient is alert and oriented x3, she does not appear anxious or depressed, she does not appear agitated. Impression #1 community-acquired pneumonia right lung-etiology unclear at this point, probably bacterial in nature, continue present antibiotic coverage and albuterol aerosol treatments. #2 chronic depression-continue home medications #3 hypokalemia-potassium supplementation was given today, recheck potassium tomorrow I reviewed Roxanna Avery's progress note including her medical assessment and plan of care and with the above additions endorse it, patient was made a full admission today. Total clinical time spent by myself addressing the patient's medical issues, reviewing the data, and collaborating with patient's care team: 36 minutes Visit Charges Inpatient E&M: 14166 Init Hosp L2
--- NOTE | 2022-01-26 12:05 | CASEMGMT ---
Addendum entered by Anisa Chawla 01/26/22 12:21: Discussed with hospitalist that pt will now stay overnight for IV atb, test for strep and legionella. Status changed per hospitalist. Original Note: Noted pt did not qualify for home oxygen. Plan for pt to dc today.
--- NOTE | 2022-01-26 12:42 | CASEMGMT ---
FAITH SMITH Assessment: Face to Face with pt for initial transition planning/care coordination assessment. RN LUIS introduced self and role at [facility], pt voices understanding and consents to assessment. Pt is A/O x4 and answers all questions appropriately at this time. Pt sitting up in bed on RA in no distress. Pt at bedside. Care providers, pharmacy, and demographics verified/updated. Admitting Dx: [facility] PNA PCP: Khurram Velazquez KINESIOLOGY PROFESSOR Specialists:Pt denies. Preferred Pharmacy: [facility] Insurance: [facility] Prescription Benefit: yes LW/HPOA: Pt denies having a LW/DPOA and denies need for info regarding AD. LNOK: Butch Molina, Living Arrangements: Pt lives with and son in a two story house with 4 steps to enter with a rail. Pt reports she is typically I in ADL's and denies concerns at home. Transportation: Pt drives self and denies concerns with transportation. DME/HHC/SNF: Pt denies having any DME in the home. Pt reports she has had HHC in the remote past and is unsure of the name of the agency. Pt denies SNF stays. Pt states no concerns with going home at time of dc. She states currently her ambulating in the halls felt like she ran a marathon. She denies need for any therapy. Pt states no further concerns/needs. CM to follow. Advised pt to ask CM if any further question/concerns/needs arise, voices understanding. Pt Goal: Home Plan: Home
[2022-01-26 13:24] LABS: Pathologist Review Reviewed
--- NOTE | 2022-01-26 14:14 | CASEMGMT ---
Discussed Patient Link with Umberto for pt.
[2022-01-26] MEDS: Ondansetron 4 MG/2 ML Vial IV (20:14)
[2022-01-27] VITALS (12 sets, daily range): BP systolic 107–141; BP diastolic 65–76; PULSE 80–116; RESP 16–28; TEMP 36.8–38.4; O2SAT 93–97
[2022-01-27] MEDS: Ipratropium/Albuterol Sulfate 3 ML AMPUL.NEB INHALATION ×5 (01:03→23:31)
[2022-01-27 06:22] LABS: Anion Gap 8 (5-15); BUN 8 mg/dL (7-18); BUN/Creat Ratio 14.4 RATIO (10-20); Calcium,Total 8.4 mg/dL (8.5-10.1); Chloride 103 mmol/L (98-107); Creatinine, Serum 0.56 mg/dL (0.55-1.02); EST Glomerular Filtration Rate 126 mL/min (>60); Est Glom Filt Rate - Afr Amer 152 mL/min (>60); Glucose 87 mg/dL (74-106); Potassium 2.9 mmol/L (3.5-5.1); Sodium Level 135 mmol/L (136-145)
--- NOTE | 2022-01-27 09:18 | NURSING ---
Pt called out and Paula PRODUCTION STAGE MANAGER answered call light. Pt cant breathe. Paula Campbell, Veronica RN and Michelle RN in room. Sp02 92% on RA. but labored breathing. Pt just got back from the shower. 02 at 2L Nc applied and spo2 95% on 2L Nc. Vitals obtained, see intervention. Roxanna Avery came to see pt few minutes in to having episode.
[2022-01-27] MEDS: Potassium Chloride Oral Tablet 20 MEQ 60 MEQ PO (09:28)
[2022-01-27] MEDS: Acetaminophen 325 MG Tablet 650 MG PO (09:28)
[2022-01-27] MEDS: Sertraline 100 MG Tablet PO (09:30)
[2022-01-27] MEDS: Enoxaparin 40 MG/0.4 ML Syringe SC (09:30)
[2022-01-27] MEDS: Mirtazapine 15 MG Tablet PO (09:30)
[2022-01-27] MEDS: Albuterol 2.5 MG/3 ML VIAL.NEB. INHALATION (09:34)
--- NOTE | 2022-01-27 11:14 | CASEMGMT ---
RN CM in to pt room, pt sitting up in bed. Discussed local in network DME companies should she qualify for home oxygen. Pt chose [employer]. Discussed that pt will receive a portable tank upon dc and she will need to call [employer] once home to have concentrator delivered. Pt verbalizes understanding. Green sheet on the chart.
--- NOTE | 2022-01-27 13:18 | PN.HOSP_ITS ---
Documented by User: Roxanna Avery NP, TALENT DEVELOPMENT CONSULTANT-C 01/27/22 13:22 Subjective Subjective Patient seen and examined. Reports increased shortness of breath and persistent cough following shower. Oxygen has remained stable. Reports fever this morning. Nonproductive cough. Objective Data Objective Data Vital Signs: Vital Signs Temp Pulse Resp BP Pulse Ox O2 Del Method O2 Flow Rate 101.2 F H 112 H 24 H 141/74 H 95 Nasal Cannula 2 01/27/22 08:15 01/27/22 09:34 01/27/22 09:34 01/27/22 09:21 01/27/22 09:21 01/27/22 09:21 01/27/22 09:21 Oxygen Flow Rate (L/min) 2 Oxygen Delivery Method Nasal Cannula Weight: 208 lb Body Mass Index (BMI) 35.6 Intake & Output: Intake and Output for Last 24 Hours 01/25/22 01/26/22 01/27/22 23:59 23:59 23:59 Intake Total 2153.25 / 2553.25 2355 / 2355 305 / 305 Balance 2153.25 / 2553.25 2355 / 2355 305 / 305 Lab / Micro Data Result Diagrams: 01/26/22 05:45 01/27/22 04:31 Labs: Laboratory Results - last 24 hr 01/26/22 05:45: Diff Path Review Reviewed 01/27/22 04:31: Sodium 135 L, Potassium 2.9 L, Chloride 103, Carbon Dioxide 24.0, Anion Gap 8, BUN 8, Creatinine 0.56, Estim Creat Clear Calc 110.70, Est GFR (MDRD) Af Amer 152, Est GFR (MDRD) Non-Af 126, BUN/Creatinine Ratio 14.4, Glucose 87, Calcium 8.4 L Micro: Microbiology 01/26/22 12:30 Urine, Random Legionella Antigen - Final 01/26/22 12:30 Urine, Random Streptococcus pneumoniae Antigen (M - Final 01/25/22 17:52 Mucosa - Nose Respiratory Panel (PCR) - Final Radiography Diagnostic Testing: Radiology Impression Venous Doppler Study 01/26/22 09:23 Interpretation Summary No evidence for acute deep venous thrombosis bilateral lower extremities with patent and compressible bilateral great saphenous veins. Ordering Physician: Roxanna Avery Performed By: Matthias Crocker, RVT Physical Exam Const alert and oriented x3 Constitutional Narrative: Appears dyspneic, persistent cough HEENT normocephalic and moist oral mucous membranes Eyes PERRL, EOMs intact bilaterally and conjunctivae normal Neck no lymphadenopathy Resp normal respiratory effort Auscultation: crackles Cardio regular rate, regular rhythm and no murmurs Peripheral Pulses: pulses 2+ throughout GI normal to inspection, nondistended, normoactive bowel sounds, non-tender and non-distended Extremity normal to inspection Skin no rashes or lesions noted Lesions: no lesions Rashes: no rashes Trauma: no lacerations or abrasions Neuro CN's II-XII intact bilaterally, no focal motor deficits, no sensory deficits noted and deep tendon reflexes 2+ bilaterally Psych mental status grossly normal and affect normal Assessment & Plan Assessment/Plan (1) Right middle lobe pneumonia: PLAN: Plan 1.? Community-acquired right lower lobe infiltrate-sepsis ruled out.??IV azithromycin and IV Rocephin.? Albuterol and DuoNeb aerosols.? Blood culture pending.? Oxygen remained stable on room air.? Continues to have fever.? COVID-negative. 2. Hypokalemia-replace per protocol, trend BMP. 3. Depression/anxiety-on mirtazapine, sertraline. DVT prophylaxis-Lovenox subcu This patient was seen by Roxanna Avery NP-Yelena under the supervision of Dr. Romano. Time spent examining patient, reviewing data and subsequent management of care: 12 minutes Documented by User: Dr. Reynaldo Romano, DO 01/27/22 15:07 Objective Data Lab / Micro Data Result Diagrams: 01/26/22 05:45 01/27/22 04:31 Assessment & Plan Assessment/Plan (1) Right middle lobe pneumonia: Charges/Coding Addendum Addendum: Patient was seen and examined today independently of Roxanna Avery, she states she feels better today although she spiked a temp again today over 101 this morning. Patient is visibly dyspneic when trying to walk even a short distance. On examination she appeared fatigued, she does not appear to be in any distress at rest. Vital signs as documented. Skin warm and dry and without overt rashes. Neck without JVD, thyroid appears normal, trachea is midline, neck is supple. Lungs inspiratory rales noted over the right mid and lower lung field, normal air movement was noted. Heart exam notable for regular rhythm, normal sounds and absence of murmurs, rubs or gallops. Abdomen unremarkable and without evidence of organomegaly, masses, or abdominal aortic enlargement, bowel sounds are present in all 4 quadrants, no abdominal tenderness was noted. Extremities n onedematous, no cyanosis was noted, no clubbing was noted. Neuro: Cranial nerves II through XII are grossly intact, no focal motor deficits were noted, sensation to light touch and pinprick is intact, motor exam 5/5 throughout. Psych: Patient is alert and oriented x3, she does not appear anxious or depressed, she does not appear agitated. ?#1 community-acquired pneumonia right lung-etiology unclear at this point, probably bacterial in nature, continue present antibiotic coverage and albuterol aerosol treatments. #2 chronic depression-continue home medications #3 hypokalemia-patient's potassium this morning was 2.9, potassium supplementation was given today, recheck potassium tomorrow I have reviewed Roxanna Avery's progress note including her medical assessment and plan of care and with the above additions endorse it. Total clinical time spent by myself addressing the patient's medical issues, reviewing the data, and collaborating with the patient's caregivers: 20 minutes Visit Charges Inpatient E&M: 23158 Subs Hosp L2
[2022-01-27] MEDS: Benzonatate 100 MG Capsule PO ×2 (14:08→20:24)
[2022-01-27] MEDS: Potassium Chloride Oral Tablet 20 MEQ 40 MEQ PO (17:07)
[2022-01-27] MEDS: guaiFENesin Dm 10 ML UDC PO (17:07)
--- NOTE | 2022-01-27 19:51 | CASEMGMT ---
Social Work Note Reason for Referral: History of Anxiety, Depression. Panic attack today. SW in to speak with pt. SW introduced self and role at [facility]. Pt is alert and orientated. Pt engaged appropriately in conversation. Pt states that she is doing ok. Pt states that she is frustrated because she will take one step forward and then twenty steps back. Pt states that she is tired and has a fever. Pt states that she saw her chest x-ray and was also told that she has Sepsis. Pt states that she then looked up what Sepsis is. Pt states that she works 60-70 hours a week and that she likes her job. Pt states that she is always go go go and now she has to rest. Pt states my job is telling me I told you so. Pt states that her body is telling her that she needed to take a break so now she has to take a break. SW offered support to pt. Pt confirms that she has history of Depression and Anxiety and also states that she has very bad OCD. Pt states that she does feel that her Anxiety and Depression are currently well managed but her OCD is going crazy being in the hospital. Pt states that she does take medications and states that she see's a psychologist through [facility]. Pt unable to recall name of her Psychologist or the agency. Pt states that she see's her Psychologist 1x a month and that that is who prescribed her medications. Pt states that she has been in counseling/therapy before, states she is not currently in therapy or counseling. SW spoke with pt that if she feels she needs to be in counseling or therapy again if she would be willing to do that and pt states she is. SW informed pt that this worker will provide her with list of counseling agencies. Pt states understanding. Pt denied any history of suicidal/homicidal thoughts/plans/ideations. Pt denied any current suicidal/homicidal thoughts/plans/ideations. SW provided pt with list of counseling agencies in [facility]. Pt thanked this worker, denied additional needs or concerns at this time. Brigette Morrow DRAW END HAND, TETRYL BLENDER OPERATOR
[2022-01-27] MEDS: Ibuprofen 400 MG Tablet PO (20:24)
[2022-01-28 02:15] VITALS: BP 114/70; PULSE 74; RESP 16; TEMP 36.5; O2SAT 93
[2022-01-28 06:55] VITALS: PULSE 86; RESP 20; O2SAT 96
[2022-01-28] MEDS: Ipratropium/Albuterol Sulfate 3 ML AMPUL.NEB INHALATION (06:55)
[2022-01-28 07:31] LABS: Anion Gap 5 (5-15); BUN 9 mg/dL (7-18); BUN/Creat Ratio 15.6 RATIO (10-20); Calcium,Total 8.6 mg/dL (8.5-10.1); Chloride 106 mmol/L (98-107); Creatinine, Serum 0.58 mg/dL (0.55-1.02); EST Glomerular Filtration Rate 120 mL/min (>60); Est Glom Filt Rate - Afr Amer 145 mL/min (>60); Estimated Creatinine Clearance 106.89 ml/min; Glucose 93 mg/dL (74-106); Potassium 3.4 mmol/L (3.5-5.1); Sodium Level 138 mmol/L (136-145)
--- NOTE | 2022-01-28 08:05 | RAD_ITS ---
STUDY: X-RAY CHEST REASON FOR EXAM: Female, 46 years old. Pneumonia TECHNIQUE: PA and lateral views of the chest. COMPARISON: PA and lateral chest x-ray 01/26/2022 FINDINGS: There is a mildly less densely confluent appearance of the ill-defined right lower lobe pneumonic infiltrate on today''s exam and borderline stranding in the left perihilar and medial left basilar areas, grossly unchanged. Small calcified granuloma in the lingula of left upper lobe also again noted There is no demonstrated pleural abnormality. Normal size heart. Stable calcified lymph nodes at the aorticopulmonary window. Normal visualized left upper lobe pulmonary vascular markings. Normal visualized aortic arch and descending thoracic aorta. Normal visualized thoracic spine. Normal visualized ribs, clavicles, and shoulders. There is no demonstrated abnormality of the visualized soft tissue structures of the upper abdomen. RAD/Chest PA and Lateral IMPRESSION: 1. Mild decreasing density of the right lower lobe pneumonic infiltrate. 2. Minor stranding in the left base unchanged. Stable findings of old left calcified granulomatous disease. Electronically Signed: Craig So MD at 12:05 EDT ,
[2022-01-28 09:25] VITALS: BP 106/67; PULSE 87; RESP 17; TEMP 36.9; O2SAT 93
[2022-01-28 09:35] VITALS: O2SAT 93; O2SAT 94
[2022-01-28] MEDS: Mirtazapine 15 MG Tablet PO (09:42)
[2022-01-28] MEDS: Enoxaparin 40 MG/0.4 ML Syringe SC (09:42)
--- NOTE | 2022-01-28 09:46 | PCM.DC ---
Discharge Instructions Diet Discharge Diet: No restrictions Activity Discharge Activity: Return to Normal Activity Dressing / Incision Call your doctor if you observe: Fever of 101 or Higher, Shortness of breath, Dizziness and Chest pain Follow Up Care Test Results: Test results from this visit will be discussed in further detail at your follow-up appointment, if applicable. Discharge Plan Admission Admit Date/Time: 01/25/22 13:38 Primary Reason for Your Visit: pneumonia Attending Provider: Reynaldo Romano Primary Care Provider: Khurram Velazquez NP Instructions Forms: Work / School Excuse Discharge Orders/Prescriptions Prescriptions: New benzonatate 100 mg Capsule 100 mg PO Q4H PRN PRN (Reason: cough) Qty: 15 0RF levofloxacin 750 mg tablet 750 mg PO DAILY Qty: 5 0RF Continued sertraline 100 mg tablet 100 mg PO DINNER mirtazapine 15 mg tablet 15 mg PO DINNER Label Comments: TAKE 1 TABLET BY MOUTH ONCE DAILY albuterol sulfate [Ventolin HFA] 90 mcg/actuation HFA aerosol inhaler 1 - 2 puff inhalation Q4H PRN PRN (Reason: SOB/Wheezing) Qty: 1 0RF Referrals / Follow Up: Nilesh Kapoor DO [Med Staff - Active Staff] - Within 2 Weeks (Pulmonary medicine) Khurram Velazquez NP, GRADUATE TEACHING ASSOCIATE-C [Primary Care Provider] - In 1 Week Disposition Disposition (needs filled in before D/C Order can be placed): Home, Self Care
--- NOTE | 2022-01-28 09:54 | PCM.DC.SUM ---
Documented by User: Roxanna Avery NP, COMPLIANCE MONITOR-C 01/28/22 10:01 Providers Date of Admission: 01/25/22 Date of Discharge: 01/28/22 Primary Care Physician: CINTHIA Prasad Reason For Visit: RLL PNA Diagnosis Discharge Diagnosis (1) Right middle lobe pneumonia: Status: Acute Code(s): J18.9 - Pneumonia, unspecified organism Medications at Discharge Home Medications albuterol sulfate 90 mcg/actuation aerosol inhaler (Ventolin HFA) 1 - 2 puff inhalation Q4H PRN PRN SOB/Wheezing #1 device 01/20/22 mirtazapine 15 mg tablet 15 mg PO DINNER 01/20/22 sertraline 100 mg tablet 100 mg PO DINNER 01/20/22 benzonatate 100 mg capsule 100 mg PO Q4H PRN PRN cough #15 caps 01/28/22 levofloxacin 750 mg tablet 750 mg PO DAILY #5 tabs 01/28/22 Hospital Course Operations None Procedures None Summary of Care Provided Hospital Course: Patient is a 46-year-old female admitted 01/25/2022 due to cough and shortness of breath. 1.? Community-acquired right lower lobe infiltrate-sepsis ruled out.??IV azithromycin and IV Rocephin during admission. Transition to oral Levaquin at discharge to complete course.?Oxygen remained stable on room air.? COVID-negative. Blood cultures negative. Continue as needed albuterol inhaler. Referred to pulmonary medicine for outpatient follow-up for pulmonary function testing and ongoing pulmonary follow-up. Patient has extensive smoking history. 2. Hypokalemia-replaced per protocol. Recommend repeat BMP in 1 week by primary care provider. 3. Depression/anxiety-on mirtazapine, sertraline. 4. Tobacco dependence-states quit 2 days prior to admission. Encouraged ongoing cessation. Physical Exam Const alert and oriented x3 Constitutional Narrative: Appears dyspneic, persistent cough HEENT normocephalic and moist oral mucous membranes Eyes PERRL, EOMs intact bilaterally and conjunctivae normal Neck no lymphadenopathy Resp normal respiratory effort Auscultation: Clear to auscultation Cardio regular rate, regular rhythm and no murmurs Peripheral Pulses: pulses 2+ throughout GI normal to inspection, nondistended, normoactive bowel sounds, non-tender and non-distended Extremity normal to inspection Skin no rashes or lesions noted Lesions: no lesions Rashes: no rashes Trauma: no lacerations or abrasions Neuro CN's II-XII intact bilaterally, no focal motor deficits, no sensory deficits noted and deep tendon reflexes 2+ bilaterally Psych mental status grossly normal and affect normal Patient seen and examined prior to discharge. Physical assessment as noted above. Patient is stable for discharge with follow up recommendations as noted above. This patient was seen by Roxanna Avery NP-C under the supervision of Dr. Romano. Time spent examining patient, reviewing data and subsequent management of care: 23 minutes Weight / BMI Weight Weight: 208 lb Body Mass Index (BMI) 35.6 ABG / Lab / Microbiology Data Result Diagrams: 01/26/22 05:45 01/28/22 06:18 Laboratory: Laboratory Results - last 24 hr 01/28/22 06:18: Sodium 138, Potassium 3.4 L, Chloride 106, Carbon Dioxide 27.0, Anion Gap 5, BUN 9, Creatinine 0.58, Estim Creat Clear Calc 106.89, Est GFR (MDRD) Af Amer 145, Est GFR (MDRD) Non-Af 120, BUN/Creatinine Ratio 15.6, Glucose 93, Calcium 8.6 Microbiology: Microbiology 01/25/22 09:30 Blood Culture (Wb) - Anticubital Left Blood Culture - Preliminary No growth in 48 hours. 01/25/22 09:09 Blood Culture (Wb) - Anticubital Right Blood Culture - Preliminary No growth in 48 hours. 01/26/22 12:30 Urine, Random Legionella Antigen - Final 01/26/22 12:30 Urine, Random Streptococcus pneumoniae Antigen (M - Final 01/25/22 17:52 Mucosa - Nose Respiratory Panel (PCR) - Final D/C Instructions Discharge Diet: No restrictions Call your doctor if you observe: Fever of 101 or Higher, Shortness of breath, Dizziness and Chest pain Meaningful Use Info Meaningful Use Diagnoses (Choose all that apply): None applicable Discharge Plan Admission Admit Date/Time: 01/25/22 13:38 Primary Reason for Your Visit: pneumonia Attending Provider: Reynaldo Romano Primary Care Provider: Khurram Velazquez NP Instructions Forms: Work / School Excuse Discharge Orders/Prescriptions Prescriptions: New benzonatate 100 mg Capsule 100 mg PO Q4H PRN PRN (Reason: cough) Qty: 15 0RF levofloxacin 750 mg tablet 750 mg PO DAILY Qty: 5 0RF Continued sertraline 100 mg tablet 100 mg PO DINNER mirtazapine 15 mg tablet 15 mg PO DINNER Label Comments: TAKE 1 TABLET BY MOUTH ONCE DAILY albuterol sulfate [Ventolin HFA] 90 mcg/actuation HFA aerosol inhaler 1 - 2 puff inhalation Q4H PRN PRN (Reason: SOB/Wheezing) Qty: 1 0RF Referrals / Follow Up: Nilesh Kapoor DO [Med Staff - Active Staff] - Within 2 Weeks (Pulmonary medicine) Khurram Velazquez NP, COMPLIANCE MONITOR-C [Primary Care Provider] - In 1 Week Disposition Disposition (needs filled in before D/C Order can be placed): Home, Self Care Documented by User: Dr. Reynaldo Romano DO 01/28/22 12:16 Providers Date of Admission: 01/25/22 Reason For Visit: RLL PNA Diagnosis Discharge Diagnosis (1) Right middle lobe pneumonia: Status: Acute Code(s): J18.9 - Pneumonia, unspecified organism Medications at Discharge Home Medications albuterol sulfate 90 mcg/actuation aerosol inhaler (Ventolin HFA) 1 - 2 puff inhalation Q4H PRN PRN SOB/Wheezing #1 device 01/20/22 mirtazapine 15 mg tablet 15 mg PO DINNER 01/20/22 sertraline 100 mg tablet 100 mg PO DINNER 01/20/22 benzonatate 100 mg capsule 100 mg PO Q4H PRN PRN cough #15 caps 01/28/22 levofloxacin 750 mg tablet 750 mg PO DAILY #5 tabs 01/28/22 ABG / Lab / Microbiology Data Result Diagrams: 01/26/22 05:45 01/28/22 06:18 Discharge Plan Admission Admit Date/Time: 01/25/22 13:38 Primary Reason for Your Visit: pneumonia Attending Provider: Reynaldo Romano Primary Care Provider: Khurram Velazquez NP Instructions Forms: Work / School Excuse Discharge Orders/Prescriptions Prescriptions: New benzonatate 100 mg Capsule 100 mg PO Q4H PRN PRN (Reason: cough) Qty: 15 0RF levofloxacin 750 mg tablet 750 mg PO DAILY Qty: 5 0RF Continued sertraline 100 mg tablet 100 mg PO DINNER mirtazapine 15 mg tablet 15 mg PO DINNER Label Comments: TAKE 1 TABLET BY MOUTH ONCE DAILY albuterol sulfate [Ventolin HFA] 90 mcg/actuation HFA aerosol inhaler 1 - 2 puff inhalation Q4H PRN PRN (Reason: SOB/Wheezing) Qty: 1 0RF Referrals / Follow Up: Nilesh Kapoor DO [Med Staff - Active Staff] - Within 2 Weeks (Pulmonary medicine) Khurram Velazquez NP, COMPLIANCE MONITOR-C [Primary Care Provider] - In 1 Week Disposition Disposition (needs filled in before D/C Order can be placed): Home, Self Care Charges/Coding Addendum Addendum: Patient was seen and examined today independently of Roxanna Avery, her chest x-ray today shows improvement in the right lung infiltrate. Patient is afebrile and she states she feels better. She remains on room air at this time. On examination she appeared in good health and spirits, she does not appear to be in any distress. Vital signs as documented. Skin warm and dry and without overt rashes. Neck without JVD, thyroid appears normal, trachea is midline, neck is supple. Lungs inspiratory rales are noted over the right midlung field, normal air movement was noted. Heart exam notable for regular rhythm, normal sounds and absence of murmurs, rubs or gallops. Abdomen unremarkable and without evidence of organomegaly, masses, or abdominal aortic enlargement, bowel sounds are present in all 4 quadrants, no abdominal tenderness was noted. Extremities nonedematous, no cyanosis was noted, no clubbing was noted. Neuro: Cranial nerves II through XII are grossly intact, no focal motor deficits were noted, sensation to light touch and pinprick is intact, motor exam 5/5 throughout. Psych: Patient is alert and oriented x3, she does not appear anxious or depressed, she does not appear agitated. Impression: #1 community-acquired pneumonia right lung-organism unknown, patient will be discharged with Levaquin to take at home #2 hypokalemia-patient's potassium was slightly low today at 3.4, patient was given supplemental potassium today, she will need a recheck on her BMP as an outpatient #3 chronic depression/anxiety-patient will remain on her current medications I have reviewed Roxanna Avery's discharge summary including her medical assessment and plan of care and with the above additions endorse it. Total clinical time spent by myself addressing the patient's medical issues, reviewing the data, and collaborating with patient's care team: 25 minutes Visit Charges Inpatient E&M: 25314 Disch Hosp
[2022-01-28] MEDS: Potassium Chloride Oral Tablet 20 MEQ 40 MEQ PO (11:46)
[2022-01-28] MEDS: Benzonatate 100 MG Capsule PO (12:37)
[2022-01-28 12:38] VITALS: BP 105/69; PULSE 87; RESP 16; TEMP 36.9; O2SAT 95
== END 2022-01-28 13:18 | disposition home or self-care (01) | DRG 195 ==
LOC: ED 10:43 → MS3 11:37
PROVIDERS: Nurse Practitioner Family; Admitting Provider Internal Medicine; Emergency Provider Emergency Medicine; PCP Nurse Practitioner Family; Visit Provider Internal Medicine
DX: J18.9 Pneumonia, unspecified organism (principal); E87.6 Hypokalemia; F41.9 Anxiety disorder, unspecified; F17.210 Nicotine dependence, cigarettes, uncomplicated; F32.A Depression, unspecified; R79.1 Abnormal coagulation profile; Z79.899 Other long term (current) drug therapy; Z86.711 Personal history of pulmonary embolism
CPT/HCPCS: 36415; 71045; 71046; 71275; 80048; 80053; 83605; 83735; 85025; 85610; 85730; 87040; 87449; 87633; 93005; 93970; 94640; 94762; 99251; 99285; J7030; J7040; Q9967; A4216; G0463; J0696; J2405

== ENCOUNTER → 2022-11-15 | Outpatient (CLI) | payer OTHER, SELFPAY ==
--- NOTE | 2022-11-15 14:10 | PR.OPHP_ITS ---
History of Present Illness Arrival date:: 11/15/22 Arrival time:: 14:10 Primary Diagnosis: COVID-18 December 2021, then pneumonia hospitalized both times [facility] Breathless Scale: When is the patient short of breath? Y/N Grade: Description of Breathlessness: 0 I only get breathless with strenuous exercise. 1 I get short of breath when hurrying on level ground or walking up a slight hill. 2 On level ground, I walk slower than people of the same age because of breathless, or have to stop for breath when walking at my own pace. 3 I stop for breath after walking 100 yards or after a few minutes on level ground. 4 I am too breathless to leave the house or I am breathless when dressing. - Secretions Thick:: No Thin:: No Cough:: No AM: No PM: No Night Time: No A.T.C.: No Hx of Sleep Apnea: Yes Do you snore loudly (louder than talking or can be heard through closed doors)?: Yes - Moderate to Severe TERESITA - CPAP Do you often feel tired/ fatigued/ sleepy during daytime?: Yes Has anyone observed you stop breathing during sleep?: Yes History of Hypertension (for STOP score): Yes STOP Results: Positive Home Medications: Home Medications albuterol sulfate 90 mcg/actuation aerosol inhaler (Ventolin HFA) 1 - 2 puff inhalation Q4H PRN PRN SOB/Wheezing #1 device 01/20/22 mirtazapine 15 mg tablet 15 mg PO DINNER 01/20/22 sertraline 100 mg tablet 100 mg PO DINNER 01/20/22 benzonatate 100 mg capsule 100 mg PO Q4H PRN PRN cough #15 caps 01/28/22 levofloxacin 750 mg tablet 750 mg PO DAILY #5 tabs 01/28/22 Allergies/Adverse Reactions: Allergies No Known Allergies Allergy (Verified 01/25/22 08:43) Medical Utilization Do you use a peak flow meter at home?: No Do you use a spacer device with your inhalers?: No Number of hospital visits in the last year?: 2 Number of emergency room visits in the last year?: 2 Do you see your physician on a regular schedule?: Yes How often?: as needed, Dr. 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 Upper respiratory infections symptoms: No Gastro-intestinal symptoms: Yes - History of GERD [id number] symptoms: No Has tested positive for COVID-19 in last 30 days: No Date of testin11/15/22 - Has been vaccinated Had contact w/person w/symptoms or Covid-19 (+) last 14 days: No 65 years or older:: No Lives in Assisted Living facility:: No Has a chronic lung disease or moderate to severe asthma:: No Has a serious heart condition:: No Immunocompromised:: No Severely obese (Body Mass Index of 40 or higher):: No Diabetic:: No Medical History: Past Medical History (Last Reviewed 01/25/22 @ 13:38 by Marnie Moore NP-C) Alcohol abuse F10.10 socially Anxiety F41.9 Depression F32.A Pulmonary embolism I26.99 last one in her 20's Smoker F17.200 .5 pk / day Surgical History: Past Surgical History (Last Reviewed 01/25/22 @ 13:38 by Marnie Moore NP-C) History of hysterectomy Z90.710 - Current/ Previous Services Pulmonary Rehab:: No Social History - Smoking History Smoking Status: Current every day smoker Years Smokin - Previopus 1 PPD Packs Smoked per Day: 0.5 - down to less tahn 0.5 PPD Hx Tobacco Use: Yes Hx Smoking Exposure: Yes - Alcohol Use Alcohol Usage: Yes - Occasionally; - Substance Abuse Hx Substance Use: No - Occupation Occupation (List type of work in comments):: Employed Hours worked per day:: 10 - Hobbies, Recreation, Social Activities Hobbies: Other - Music, concerts, sport events Recreational Activities: I am able to engage in a few activities Functioning ADL/IADL - Current Ability Current Ability: Independent Self-Care (e.g.,grooming, dressing, & bathing), Independent Ambulation, Independent Transfer, Needs some help Household tasks (e.g., light meal prep, laundry, shopping) - climbing the stairs, needs help carrying laundry - Pt Functioning Prior to Problem Prior Functioning: Self-Care (e.g.,grooming, dressing, & bathing): Independent, Ambulation: Independent, Transfer: Independent, Household tasks (e.g., light meal prep, laundry, shopping): Needs some help Social Environment - Status Marital Status: - Current Living Arrangements Living Environment:: Spouse - Children How many children do you have?: 4 Do any of your children live nearby?: Yes - 2 at home and grandchild - Safety Do you feel safe in your surroundings?: Yes - Assistance Do you need any assistance at home?: no Review of Systems Review of Systems: Right click = Denies (Slash). Left click = Reports ([place]) Respiratory: Reports: SOB at Rest - Depends on the day, have good days and bad days. Random days., SOB upon Exertion, Wheezing, Fatigue. Denies: Cough, Hemoptysis, Sputum production, Appetite, Normal - lack of appetite; more short of breath less hungry, Dizziness/Lightheadedness, PVD, Sexual changes, Sleep, Normal Is Patient Pain Free?: Yes Pain Location: none Pain Level: 0/10 Risk Factor Assessment - Vital Signs Pulse Rate: 98 - LVEF 54 Respiratory Rate: 14 Pulse Ox: 98 Blood Pressure: 135/79 - Obesity Height: 5 ft 4 in Weight:: 232 lb Weight in Pounds: 232.0 lbs Weight Source: Estimated by Patient Body Mass Index (BMI): 39.8 - Risk Stratification Risk Guidelines: Lowest Risk: Risk Factor for Dyslipidemia, Risk Factor for Diabetes, Moderate Risk: Risk Factor for Hypertension - 135/79, Highest Risk: Risk Factor for Smoking, Risk Factor for Obesity - BMI 39 Motivation - Motivation to Participate On a scale of 1 to 10, how prepared are you to commit to attending program?: 10 What do you see as barriers to successfully being able to complete the program?: no What do you see as the benefits of succesfully completing the program? In other words, what do you hope to get out of participating in the program?: Being able to move around, seriously frustrating not being able to function Are there issues you are dealing with that will interfere with completing the program?: no Do you have a spouse or signficant other, family or friends who will help support you to complete the program?: Yes Diagnostic Data Review - Pulmonary Function Test FEV1:: 2.31 FVC:: 3.00 FEV1/FVC%:: 77
--- NOTE | 2022-11-15 14:10 | PR.OPITP_ITS ---
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 Secondary Diagnosis: Hx of Pneumonia - Personal Learning Style/Barriers Personal Learning Style:: Audio/Visual Barriers to Learning: None Educational Classes NM: Breathing Retraining: Initial Assessment, Exercise: Initial Assessment, Quitting smoking: Initial Assessment - Education/Goals Individual Counseling: Initial Assessment: Nicotine/Smoking, High Blood Pressure, Overweight/Obesity NM Patient Goals: Experience less dyspnea: Initial Assessment, Improve energy level: Initial Assessment, Improve the ability to cope with ADLs: Initial Assessment, Improve diet and nutrition: Initial Assessment, Improve my quality of life: Initial Assessment, Reduce Stress/relaxation techniques: Initial Assessment Exercise - Initial Assessment - Visit Date of Eval: 11/15/22 Session Number:: 0 - Pre-program evaluation - Problem/Goals Problems: Deconditioning Goals:: Aerobic exercise 30-60 mins x 12 weeks [36 sessions] - Physician Prescribed Exercise Modalities: Treadmill, Rower, Airdyne, NuStep Frequency (days/week): 3 Duration (Minutes):: 30-45 Intensity: 60-80% of age predicted maximum heart rate reserve Current METSs:: 4.0 Target HR:: 131 - THRR 113-131 Resting Blood Pressure: 135/79 - SpO2 98% EKG Type: Normal Sinus Rhythm - Plan Plan and Plan to Review:: Benefits of exercise, Core components of exercise, How to measure dyspnea level, How to monitor dyspnea level, Exercise intensity, Exercise safety guideline, Home exercise guidelines, Carlene: 3-4/11-13 Nutrition/Wt Mgmt - Initial - Visit Date of Eval: 11/15/22 Session Number:: 0 - Pre-Evaluation - Problems/Goals Problems: Overweight Goals: BMI 21-25 - Weight Management Knowledge Deficit Management of:: Overweight Admit Height:: 5 ft 4 in Admit Weight:: 232 lb Admit BMI:: 39.8 - Intervention Referral to dietitian:: Yes Will attend diet classes:: Yes Intervention/Plan: Instruct on ideal BMI & set weight loss goal w/patient, Assist pt to ID & incorporate diet changes for weight loss by S9, Refer to Structured Weight Loss program as appropriate, Encourage goal of using 250- 300dcal per session for weight loss - Plan Nutrition Plan: Yes Review BMI or WC & identify target wt & strategies for wt control, Yes Nutrition education class:, Yes Weight control education class: Psychosocial - Initial Assess - Visit Date of Eval: 11/15/22 Session Number:: 0 - Pre-evaluation - Problems/Goals History of Emotional Disorders: Anxious, Depression Psychosocial Goals: 3. Identifies activities to decrease isolation and/or symptoms of, 4. Improved psychosocial coping skills., 5. Verbalizes coping strategies., 7. Improved Q.O.L. Self-reported stressors: Recent Illness - Psychosocial Test Tool Used:: Pulmonary QOL, PHQ-9 Questionnaire Referred to MD for counseling:: No - Referral to Behavioral Health PS - Interventions: Yes Attend Stress Management Classes, No Referral to Behavioral Health if PHQ-9 score >9:, No Referral to [facility], No Referral to Physician if PHQ-9 if score is 5-9: - Currently being treated for depression - Intervention/Plan: See List Interventions/Plan:: Assess stressors,coping strategies & signs of derpression on admission, Instruct/assist pt to develop coping & personal stress Mgt strategies, Instruct patient to recognize signs & symptoms of depression, Instruct patient to recog Oxygen & Oxygen Titration Init - Visit Date of Eval: 11/15/22 Session Number:: 0 - Pre-evaluation - Initial Assessment Oxygen on Admission: None Patient Reports:: No cough Core Components - Initial - Visit Date of Eval: 11/15/22 Session Number:: 0 - pre-evaluation - Hypertension Hypertension Diagnosis:: Hypertension ICD-10 I10 BP: 135/79 [employer] Hypertension Guidelines: [employer] [place] [employer] Hypertension Guidelines. Normal BP Less than 120/80. Elevated BP 120/80. Hypertension Stage 1: BP 130-139/80-89. Hypertesnion Stage 2: BP 140 or higher/90 or higher. Hypertension Crisis: BP higher than 180/120 Blood Pressure: 135/79 Low Sodium diet: No Outcomes/Goals: Able to verbalize/achieve optimal blood pressure <130/80 - Tobacco - Initial Assessment Tobacco Program Goals: Complete smoking cessation. Attend education classes. Improve Knowledge Test score Stages of Change:: Action Learning Barriers: Ready to Learn Do you have family support?: Yes Tobacco Use: Cigarettes How many cigarettes do you smoke per day?: 0.5 - down currently to 5 or 6 Years Smokin Do you use smokeless tobacco?: No Smoking Cessation Referral:: Yes Individual Education/Counseling:: Yes - Smoking Cessation Education Schedule Given:: Yes Gave Education Materials For:: Tobacco Triggers, Pulmonary Disease, Risk Factors, Breathing Techniques, Medical Compliance, Pulmonary A&P, Stress & Relaxation - Exacerbation Mgmt & Airway Clearance Patient Reports:: No cough Plan: Monitor SpO2 rest & with exercise Bronchial Hygiene Plan: Hydration, Signs/symptoms to report: - Diabetes Diabetes:: No - Heart Failure Ejection fraction %:: 54 Documenting weight daily for CHF: No Core Components - 30 DAYS Core Components - 60 DAYS Core Components - 90 DAYS Core Components - Final Patient Health Questionnaire Initial Assessment 1. Little interest or pleasure in doing things: Several days 2. Feeling down, depressed, or hopeless: More than half the days 3. Trouble falling or staying asleep, or sleeping too much: Nearly every day 4. Feeling tired or having little energy: More than half the days 5. Poor appetite or overeating: Nearly every day 6. Feeling bad about yourself -- or that you are a failure or have let yourself or your family down: Nearly every day 7. Trouble concentrating on things, such as reading the newspaper or watching television: Several days 8. Moving or speaking so slowly that other people could have noticed. Or the opposite - being so fidgety or restless that you have been moving around a lot more than usual: Not at all 9. Thoughts that you would be better off , or of hurting yourself in some way: Several days How difficult have these problems made it for you to do your work, take care of things at home, or get along with other people?: Somewhat difficult - Patient is diagnosed with anxiety & depression being treated. Total Score: 16 Knowledge Questionaire (BCKQ) - Information Information: [place] COPD Knowledge Questionnaire (BCKQ) This questionnaire is designed to find out what you know about your lung problem. It should be completed without help form anyone else. This usually takes between 10 and 20 minutes. Your answers will help us to find out what information you need to help you to understand and manage your lung condition. Reynaldo the karuk which you think is the correct answer. Self-Efficacy Initial Assessment We would like to know how confident you are in doing certain activities. Please select your confidence level for:: Select your confidence level for the following using the scale 1-10 where 1 is not at all confident and 10 is totally confident. Your score is the average of all 6 responses. Fatigue: How confident are you that you can keep the fatigue caused by your disease from interfering with the things you want to do? Select Number: 7 Physical Discomfort or Pain: How confident are you that you can keep the physical discomfort or pain of your disease from interfering with the things you want to do? Select Number: 3 Emotional Distress: How confident are you that you can keep the emotional distress caused by your disease from interfering with the things you want to do? Select Number: 7 Other Symptoms or Health Problems: How confident are you that you can keep other symptoms or health problems from interfering with the things you want to do? Select Number: 8 Different Tasks and Activities: How confident are you that you can do the different tasks and activities needed to manage your health condition so as to reduce your need to see a doctor? Select Number: 3 Medication: How confident are you that you can do things other than just taking medication to reduce how much your illness affects your everyday life? Select Number: 5 Total Score:: 5 Nutrition Survey - Nutrition Survey Initial Have you lost >10 lbs over the past 2 months without trying?: No Are you following a special diet at home for diabetes, low fat, or low salt?: No Are you interested in meeting with a dietitian for help understanding your diet?: Yes Do you eat less than 3 meals a day?: No Do you eat fatty meats (cope, sausage, ribs, etc), fried foods, desserts, large amounts of salad dressings, margarine, butter, or cheese most days?: Yes Do you have food allergies? [Enter types in comment field]: No Do you eat in restaurants more than 3 times a week?: No Do you season food with salt, seasoning salt, or garlic salt?: No Do you used canned, boxed, frozen meals, or soups, seasoning packets?: Yes Total Score:: 3
[2022-11-15 14:35] VITALS: BP 135/79; PULSE 98; RESP 14; O2SAT 98; BMI 39.8
[2022-11-15 15:08] VITALS: BP 135/79; BMI 39.8
== END | disposition home or self-care (01) ==
LOC: PR 13:41
PROVIDERS: PCP Nurse Practitioner Family
DX: U09.9 Post COVID-19 condition, unspecified (principal)